=== PATIENT | male | born 1995 | race Caucasian/White ===

== ENCOUNTER 2019-01-19 06:10 | Day surgery (SDC) | payer MEDICAID ==
[~2019-01-19] VITALS: Ht 170.2 cm; Wt 79.4 kg
[2019-01-19] MEDS ORDERED: LIDOCAINE/EPI 1% 1:100000 20 ML VIAL INJ ONE (07:05)
[2019-01-19] MEDS ORDERED: NS IRRIG SOLN 1000 ML IR ONE (07:05)
[2019-01-19] MEDS ORDERED: KETOROLAC TROMETHAMINE 30 MG VIAL IVP ONE (07:05)
[2019-01-19] MEDS ORDERED: LR 1,000 ML IV.SOLN IV ONE (07:05)
[2019-01-19] MEDS ORDERED: MUPIROCIN 2% TOPICAL OINTMENT 22 GM TP ONE (07:05)
[2019-01-19] MEDS ORDERED: fentaNYL CITRATE 250 MCG/5 ML AMP IV ONE (07:05)
[2019-01-19] MEDS ORDERED: NS 250 ML IV.SOLN IV ONE (07:05)
[2019-01-19] MEDS ORDERED: MIDAZOLAM HCL 5 MG/5 ML VIAL IVP ONE (07:05)
[2019-01-19] MEDS ORDERED: ONDANSETRON HCL 4 MG/5 ML UDC PO ONE (07:05)
[2019-01-19] MEDS ORDERED: ROCURONIUM BROMIDE 10 MG/ML (ZEMURON) IV ONE (07:05)
[2019-01-19] MEDS ORDERED: SEVOFLURANE 15 MIN GAS INH ONE (07:05)
[2019-01-19] MEDS ORDERED: DEXAMETHASONE SOD PHOSPHATE 4 MG/ML VIAL IVP ONE (07:05)
[2019-01-19] MEDS ORDERED: LR 1,000 ML IV SCH (08:19)
[2019-01-19] MEDS ORDERED: HYDROmorphone 2 MG/ML VIAL IVP PRN ×2 (08:30)
[2019-01-19] MEDS ORDERED: MEPERIDINE HCL/PF 25 MG/ML DISP.SYRIN IVP PRN (08:30)
[2019-01-19] MEDS ORDERED: HYDROmorphone 1 MG INJ. 1 MG/ML AMPUL IVP PRN (08:30)
[2019-01-19] MEDS ORDERED: HYDROmorphone 2 MG/ML VIAL ONE (10:14)
[2019-01-19 11:10] VITALS: BP_SYST 122
== END 2019-01-19 13:30 | disposition home or self-care (01) ==
LOC: SMU 06:10 → SDS 06:10
PROVIDERS: ATTEND Otolaryngology
DX: J34.89 Other specified disorders of nose and nasal sinuses (principal); J34.2 Deviated nasal septum; D38.5 Neoplasm of uncertain behavior of other respiratory organs; J32.9 Chronic sinusitis, unspecified; F17.210 Nicotine dependence, cigarettes, uncomplicated; Z83.3 Family history of diabetes mellitus
CPT/HCPCS: 30140; 30520; 88305; 88311; J1100; J1170; J1885; J2250; J3010; J7050; J7120; Q0162